=== PATIENT | female | born 1955 ===

== ENCOUNTER 2024-12-31 08:21 | Outpatient (AMB) | payer OTHER, SELFPAY ==
--- NOTE | 2024-12-31 08:23 | A.PHYSOV_ITS ---
Vital Signs 12/31/24 08:26 Height 5 ft 6 in Weight 220 lb BMI 35.5 Intake Visit Reasons: F/U after injection 11/29/2024 Intake Note: Patient is a 69 year old female in office today for a follow up visit after bilateral shoulder injections on 11/29/24. Crown Buffer Required: No Allergies aspirin Allergy (Unknown, Verified 12/31/24 08:24) Unknown ciprofloxacin Allergy (Unknown, Verified 12/31/24 08:24) Unconscious codeine Allergy (Unknown, Verified 12/31/24 08:24) Unknown hydromorphone (From Dilaudid) Allergy (Unknown, Verified 12/31/24 08:24) Unknown morphine Allergy (Unknown, Verified 12/31/24 08:24) Unknown Penicillins Allergy (Unknown, Verified 12/31/24 08:24) Unknown Sulfa (Sulfonamide Antibiotics) Allergy (Unknown, Verified 12/31/24 08:24) Unknown sulfamethoxazole (From Bactrim) Allergy (Unknown, Verified 12/31/24 08:24) Unknown Tetracyclines Allergy (Unknown, Verified 12/31/24 08:24) Unknown trimethoprim (From Bactrim) Allergy (Unknown, Verified 12/31/24 08:24) Unknown HPI Comments Details: History of Present Illness The patient is a 69-year-old individual presenting with chronic pain management. The patient has a longstanding history of lower back pain and has been diagnosed with spinal stenosis. A lumbosacral spine MRI conducted on September 23, 2023, confirmed the presence of spinal stenosis. The patient received lumbar epidural injections which provided good but short-lasting relief. The patient also reports bilateral shoulder pain, with a history of receiving a left shoulder subacromial injection on May 29, 2024, which resulted in short- lived benefit. Physical therapy was undertaken for both shoulders, but the pain remains severe, impacting daily activities such as showering. The patient underwent bilateral shoulder glenohumeral joint injections under fluoroscopic guidance on November 29, 2024. Unfortunately, once again procedure provided no benefit. The patient is diabetic and is allergic to multiple narcotic medications, limiting pain management options. The patient takes acetaminophen for pain relief and has been prescribed tramadol, which is taken after breakfast and at night. She reports minimal relief with use of tramadol 50 mg twice a day. However, she denies any side effects and no allergic reactions with use of tramadol. She continues to take acetaminophen. Pain Description - Onset: Longstanding history of lower back pain and bilateral shoulder pain - Quality: Excruciating pain, described as feeling like pulling the arm out of the socket - Location: Lower back and bilateral shoulders - Exacerbating factors: Physical activity, such as putting on deodorant - Relieving factors: Tramadol and acetaminophen, though with limited relief - Interference: Affects daily activities such as showering and applying deodorant Results - Imaging: Lumbosacral spine MRI on September 23, 2023, demonstrated spinal stenosis [facility] Medical History (Updated 12/31/24 @ 08:49 by Giovanni Lozoya DO) Lumbar radiculitis DJD of both shoulders Spinal stenosis, lumbar region with neurogenic claudication Surgical History History of tonsillectomy H/O: hysterectomy History of hernia repair History of cholecystectomy History of cancer surgery History of Social History Alcohol intake: current Alcohol intake frequency: does not drink Patient Tobacco Use Status: Never used Tobacco Current occupational status: employed Review of Systems Narrative Review of Systems - Musculoskeletal: Reports excruciating pain in lower back and bilateral shoulders - Endocrine: Reports diabetes mellitus Physical Exam Exam Exam: Physical Exam Patient appears to be in no acute distress, forward flexed posture, waddling gait. Heel walk and toe walk were not tested. Neurological examination was nonfocal. Examination of both shoulders reveals extremely limited and painful range of motion. Spurling maneuver was negative. Lhermitte's sign was negative. Patient demonstrated no upper motor neuron signs. Assessment & Plan Assessment & Plan (1) Spinal stenosis, lumbar region with neurogenic claudication: Code(s): M48.062 - Spinal stenosis, lumbar region with neurogenic claudication Category: Medical (2) DJD of both shoulders: Code(s): M19.011 - Primary osteoarthritis, right shoulder; M19.012 - Primary osteoarthritis, left shoulder Category: Medical Qualifiers: Osteoarthritis type: primary Qualified Code(s): M19.011 - Primary osteoarthritis, right shoulder; M19.012 - Primary osteoarthritis, left shoulder (3) Lumbar radiculitis: Code(s): M54.16 - Radiculopathy, lumbar region Category: Medical Plan Pain Management - Affect: Pain significantly impacts daily activities and quality of life - Analgesia: Currently using tramadol and acetaminophen, with limited relief - Adverse Effects: Allergic to multiple narcotic medications - Activities of Daily Living: Pain interferes with basic activities such as showering and applying deodorant - Aberrant Drug Related Behaviors: None reported Plan Patient was informed and verbally consented to the use of an ambient scribe for clinic note documentation during this visit. 1. Chronic Pain The patient continues to experience chronic pain affecting the lower back and bilateral shoulders. Management includes the use of tramadol and acetaminophen, with a recommendation to combine these medications for enhanced pain relief. The patient is advised to avoid high doses of ibuprofen due to potential adverse effects on kidneys and blood pressure. 2. Spinal Stenosis The patient has been diagnosed with spinal stenosis, confirmed by MRI. Previous lumbar epidural injections provided short-term relief, and further management options are being considered. 3. Diabetes Mellitus The patient's diabetes is a consideration in pain management, particularly in avoiding medications that may elevate blood sugar levels. 4. Bilateral Shoulder Pain The patient reports severe bilateral shoulder pain, with previous interventions including subacromial and glenohumeral joint injections providing limited relief. Physical therapy has been attempted, and further pain management strategies are being explored. 5. Arthritis Of The Shoulders The patient has arthritis in the shoulders, contributing to the chronic pain experienced. Cortisone injections are avoided due to potential elevation of blood sugar levels. Discussion Notes During the visit, we discussed the patient's chronic pain management, focusing on the use of tramadol and acetaminophen to alleviate symptoms. We addressed the limitations posed by the patient's allergies to narcotics and the need to avoid high doses of ibuprofen due to potential adverse effects. The patient was in formed about the potential benefits of combining tramadol with acetaminophen and was advised on the appropriate dosing regimen. It was suggested that she takes 2 tramadol tablets simultaneously bringing up to 100 mg. I will provide her with 56 tablets prescription and she will follow up with me after the holidays. She was strongly advised not to exceed a 1000 mg of acetaminophen at 1 time and may combine tramadol and acetaminophen. Patient Instructions - Take tramadol and acetaminophen as prescribed, combining them for better pain relief. - Avoid high doses of ibuprofen to prevent adverse effects on kidneys and blood pressure. - Use heating pads as needed for pain relief. - Follow up with the clinic if pain persists or worsens. Medications: New tramadol 100 mg (2 x 50 mg) PO QID PRN 56 tabs 0RF pain 7 days M19.011 - Primary osteoarthritis, right shoulder, M19.012 - Primary osteoarthritis, left shoulder, M48.062 - Spinal stenosis, lumbar region with neurogenic claudication, M54.16 - Radiculopathy, lumbar region Coding Level of Care Code Tele Est Pt Level 4 (05141) Complex visit Add On G2211 Diagnoses Spinal stenosis, lumbar region with neurogenic claudication M48.062 Primary osteoarthritis of both shoulders M19.011; M19.012 Osteoarthritis type: primary Lumbar radiculitis M54.16
[2024-12-31 08:26] VITALS: BMI 35.5
--- OUTSIDE RECORDS SUMMARY | 2024-12-31 08:37 | XMS_ITS | Encounter Summary ---
Author Organization [facility] [place] [address] Care Team Providers Care Brood Hatchery Manager Name Role Phone Marily Noel MD Primary Care Provider [phone] Encounter Details Date Type Department Care Team (Late st Contact Info) Description 12/23/2024 Telephone Adult Medicine [address] [phone] Stephanie Mejía MA Social History Tobacco Use Types Packs/Day Years Used Date Smoking Tobacco: Former Cigarettes 0.3 3.7 0 1972 - 02/07/1976 Smokeless Tobacco: Never Alcohol Use Standard Drinks/Week Comments No 0 (1 standard drink = 0.6 oz pur e alcohol) Housing Instability Answer Date Recorde d Are you worried that in the next 2 months you may not have stable housing? No 08/19/2024 Food Access & Nutrition Answer Date Rec orded Do you have access to a vari ety of food including fruits and vegetables? Yes 08/19/2024 Access to Healthcare Answer Date Record ed Within the last 3 months, ho w many times did you visit the emergency department for your medical care? 0 08/19/2024 Health Literacy Answer Date Recorded How often do you need to hav e someone help you when you read instructions, pamphlets, or other written material from your doctor or pharmacy? Never 08/19/2024 Caregiver: How often do you need to have someone help you when you read instructions, pamphlets, or other written material from your doctor or pharmacy? Not on file 08/19/2024 Financial Risk Answer Date Recorded How hard is it for you to pa y for the very basics like food, housing, medical care, and air conditioning / heating? Not very hard 08/19/2024 Transportation Answer Date Recorded Has the lack of transportati on kept you from meetings, work, or from getting things needed for daily living? No Has the lack of transportati on kept you from medical appointments or from getting medications? No 08/19/2024 Social Isolation Answer Date Recorded How often do you feel lonely or isolated from those around you? Sometimes 08/19/2024 Food Risk Answer Date Recorded Within the past 12 months we worried whether our food would run out before we got money to buy more. Never true 08/19/2024 Within the past 12 months th e food we bought just didn't last and we didn't have money to get more. Never true 08/19/2024 Dependent Care Answer Date Recorded Do you need help finding or paying for care for your loved ones. For example, child care centre manager or elderly care for an older adult? No 08/19/2024 Education Answer Date Recorded Do you think completing more education or training, like finishing a GED, going to college, or learning a trade, would be helpful for you? No 08/19/2024 Employment and Income Answer Date Recor ded During the last four weeks, have you been actively looking for work? No 08/19/2024 Living Situation Answer Date Recorded What is your living situation? Unrecognized valu e 08/19/2024 Interpersonal Safety Answer Date Record ed Physical Abuse Unrecognized value 07/02/2024 Verbal Abuse Unrecognized value 07/02/2024 Comments No Sex and Gender Information Value Date Recorded Sex Assigned at Female 04/10/2024 2:23 PM EST Legal Sex Female 11:26 AM EST Gender Identity Female 04/10/2024 2:23 PM EST Sexual Orientation Straight 08/02/2024 1: 19 PM EDT documented as of this encounter Plan of Treatment Upcoming Encounters Date Type Department Care Team (Late st Contact Info) Description 01/11/2025 12:30 PM EST Appointment Radiology Department [address] [phone] 04/23/2025 9:30 AM EDT Office Visit Adult Medicine [facility] [address] [place], [place] [phone] Belem Peng PA [address] [place], [place] documented as of this encounter Goals Goal Patient Goal Type Associated Problems Recent Progress Patient-Stated? Author PT LTG - 8 visits General No Daysi Rodriguez PT Note: Patient reports subjective decrease in neck and back pain - MET Patient is able to achieve 50 degrees of lumbar flexion - MET Patient is able to achieve 0 degrees of lumbar extension - MET Slight myofascial restriction to thoracolumbar fascia Slight myofascial restriction to bilateral upper traps, levator scap, and scalenes Patient is able to ambulate 200 ft without AD Patient is independent and compliant with HEP documented as of this encounter Visit Diagnoses Not on filedocumented in this encounter Additional Health Concerns Assessment Noted Time PHQ-9 Depression Total Score: 0 05/14/19 25 11:56 AM EDT A fall risk assessment has been complete d for the patient 08/19/2024 8:52 AM EDT documented as of this encounter Care Teams Brood Hatchery Manager Relationship Specialty Start Date End Date Marily Noel MD [address] [place] [address] PCP - General Internal Medicine 11/07/1991 documented as of this encounter
--- OUTSIDE RECORDS SUMMARY | 2024-12-31 08:37 | XMS_ITS | Clinical Summary ---
Author Organization [facility] Address [address] [place] [address] Care Team Providers Care Cupola Tapper Name Role Phone Marily Noel MD Primary Care Provider [phone] Allergies Active Allergy Reactions Criticality Noted Date Comments Aspirin 01/15/2020 Sulfamethoxazole-Trimethoprim 2021 Ciprofloxacin 01/15/2020 Codeine 10/05/2021 Hydromorphone 01/15/2020 Penicillin G 01/15/2020 Sulfacarbamide 01/15/2020 Tramadol 01/15/2020 Medications Medication Sig Dispensed Refills Start Date End Date Status pantoprazole (PROTONIX) 40 MG tablet Take 40 mg by mouth every morning on an empty stomach. 0 Active Misc Natural Products (TUMERSAID PO) Take by mouth. 0 Active vitamin C (ASCORBIC ACID) 500 MG tablet Take 500 mg by mouth daily. 0 Active fluticasone (FLONASE) 50 MCG/ACT nasal spray spray/apply 1 spray in each nostril daily. 0 Active latanoprost (XALATAN) 0.005 % ophthalmic solution 1 drop every night at bedtime. 0 Active vitamin B-1 (THIAMINE) 100 MG tablet Take 100 mg by mouth daily. 0 Active brimonidine (ALPHAGAN) 0.2 % ophthalmic solution 1 drop every 12 (twelve) hours. 0 Active timolol (TIMOPTIC) 0.25 % ophthalmic solution 1 drop 2 (two) times a day. 0 Active DICLOFENAC SODIUM EX Apply topically. 0 Active ciclopirox 0.77 % gel Apply topically 2 (two) times a day. 0 Active lidocaine (LIDODERM) 5 % Place 1 patch onto the skin daily. Remove & Discard patch within 12 hours or as directed by 0 Active Biotin (Biotin 5000) 5 MG CAPS Take by mouth. 0 Active docusate sodium (COLACE) 100 MG capsule Take 100 mg by mouth 2 (two) times a day. 0 Active senna (SENOKOT) 8.6 MG tablet Take 1 tablet by mouth daily. 0 Active Cyanocobalamin (B-12) 2500 MCG TABS Take by mouth. 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 Nutrition literature sent from the ADA, What Can I Eat? 12/26/11 A1C 6.5 LDL 124. / A1C 5.9 LDL 59. Sickle cell trait 04/06/2005 Family History Medical History Relation Name Comments Lung cancer Father Breast cancer Maternal Aunt Ovarian cancer Mother Thyroid cancer Sister Relation Name Status Comments Father Maternal Aunt Mother Sister Social History Tobacco Use Types Packs/Day Years Used Date Smoking Tobacco: Former Cigarettes 2 Smokeless Tobacco: Never Comments:Quit after college. Alcohol Use Standard Drinks/Week Comments No 0 (1 standard drink = 0.6 oz pur e alcohol) Sex and Gender Information Value Date Recorded Sex Assigned at Not on file Gender Identity Not on file Sexual Orientation Not on file Job Start Date Occupation Industry Not on file Not on file Not on file Last Filed Vital Signs Vital Sign Reading Time Taken Comments Blood Pressure 145/72 06/08/2022 9:19 AM EDT Pulse 55 06/08/2022 9:19 AM EDT Temperature 36.7 C (98 F) 06/08/2022 9:19 AM EDT Respiratory Rate - - Oxygen Saturation 99% 06/08/2022 9:19 AM EDT Inhaled Oxygen Concentration - - Weight 105.2 kg (232 lb) 06/08/2022 9:19 AM EDT Height 167.6 cm (5' 6 ) 06/08/2022 9:19 AM EDT Body Mass Index 37.45 06/08/2022 9:19 AM EDT Plan of Treatment Health Maintenance Due Date Last Done Comments Hepatitis C Screening 1955 COVID-19 Vaccine (#1) 06/01/1959 Depression Screening 1966 BMI Counseling 1972 Preventative Health Evaluation 1972 Colon Cancer Screening (Colonoscopy) 06/01/1999 Breast Cancer Screening (Mammogram) 2004 RSV Adult > 60+ Yrs or (1 - Risk 60-74 years 1-dose series) 2014 Fall Risk Assessment 06/01/2019 Osteoporosis Screening (DEXA Scan) 06/01/2019 Influenza Vaccine (#1) 2024 , 11/18/2020, 11/26/2019, Additional history exists DTap / Tdap / Td (8 - Td or Tdap) 06/16/2026 06/16/2016, 05/22/2006, 04/06/1996, Additional history exists Hepatitis B Vaccines Completed 03/23/2007, 10/20/2006, 09/20/2006 Shingrix-Zoster Vaccine Completed 10/29/2021, 08/28 Pneumococcal Vaccine Completed 03/28/2022, 10/20/2020, 07/15/2013 RSV Ped < 20 months Aged Out No longe r eligible based on patient's age to complete this topic Care Teams Cupola Tapper Relationship Specialty Start Date End Date Marily Noel MD PCP - General Internal Medicine 10/31/16
--- OUTSIDE RECORDS SUMMARY | 2024-12-31 08:37 | XMS_ITS | Data Portability ---
Author Organization [place] - [facility], Allergy Address [address] [address] Care Team Providers Care Security Operations Analyst Name Role Phone JASON DUPONT Primary Care Provider Assessment Encounter Date Assessment Date Assessment LastModified by Organization Details LastModified Time 03/11/2024 03/11/2024 68-year-old female presents today for routine hearing follow-up and audiometric testing continued to show hearing loss for which she is a candidate for amplification. She has other concerns today including dizziness, rhinitis, and hoarseness. She had negative Albia-Hallpike on exam today. We discussed possibility of migraines which could contribute dizzy symptoms as well as a head pressure. We can rule out any sinus disease with some imaging. Regarding the hoarseness, I counseled her we could assess further with flexible laryngoscopy. She is very hesitant about this. I counseled her that it was a very brief procedure. She is unsure if she could tolerate it. Will reschedule for a day she can bring a support person and she can take an Ativan prior. [email or web address] Not available 03/22/2024 07:44:32 04/16/2024 04/16/2024 CT sinus performed 03/28/24 at [facility] was reviewed with the patient. No sinus disease. I discussed with the patient that her symptoms may be related to migraine. We will send her the migraine packet to review. She will follow up at her convenience for fiberoptic laryngoscopy to address her hoarseness concerns. She is apprehensive about this exam. [email or web address] Not available 04/16/2024 16:31:11 Plan of Treatment Reminders Order Date Submit Date Provider Last Modified By Organization Details Last Modified Time Details Appointments None recorded. Lab None recorded. Referral None recorded. Procedures None recorded. Surgeries None recorded. Imaging CT, sinuses, w/o contrast 2024 025 [email or web address] [facility] [place], [address] [facility], [facility] [address], [place], [address], 09:52:43 Medication Orders Ativan 0.5 mg tablet 2024 025 [facility] #[id number], [address] [place], [address], 10:55:07 Patient TargetsNo targets recorded. Patient InstructionsNo instructions recorded. Reason for Referral None Reported. Results Created Date Observation Date Name Description Value Unit Range Abnormal Flag Note LastModifiedBy Organization Detail LastModifiedTime 03/11/19 audio gram No observ ation record ed. BARCODE Not Available 2024 13:28:11 03/29/19 25 03/28/2024 CT, sinus es, w/o contr ast No observ ation record ed. [email or web address] [facility] [address], [address], 04/16/2024 10:43:59 Result Notes None recorded. Problems Name Problem SNOMED Code Status Onset Date Resolution Date Notes Provider Name and Address Organization Details Recorded Time Sensorine ural hearing loss of bilateral ears 343605560 Active 2019 Sensorine ural hearing loss, bilateral ; Note: Date Diagnosed : 10/09/2019 12:10 PM (H90.3) Not Available [facility] 4 02:53:21 Impacted cerumen of bilateral ears 43000389911 31964 Active 2023 Impacted cerumen, bilateral ; Note: Date Diagnosed : 03/17/2023 11:25 AM (H61.23) Not Available [facility] 4 02:53:19 Chronic rhinitis 18757019 Active 2024 THOM NAVA MD [address] [place] [address], [place], [address] , [facility] - [facility] 5 10:51:47 Chronic hoarsenes s 34595500517 05 Active 2024 THOM NAVA MD [address] [facility],[place] [address], [facility] [place], [address] , [facility] - [facility] [place] 5 10:53:52 Problem Notes None recorded. Procedures Surgical History Date Name Laterality Status Provider Name and Address Organization Details Recorded Time 03/11/2024 Air & Speech Audio with Tymps - 05734, 61994 & 31521 completed SOPHIA MORA [address] [facility],[place] [address], [place], [address], [facility] 03/11/2024 10:19:04 Imaging Results None recorded. Procedure Notes None recorded. Medical Equipment None Reported. Allergies Allergen ID Allergen Name Allergen Category Reaction Reaction Severity Criticality Documentation Date Start Date Code Code System Note Provider Name and Address Organization Details Recorded Time 01966 strawberr y allergeni c extract food,medi cation hives Not available Not available 06/20/2023 81283 4 RxNorm React ion: Hives ; Not Available [facility] 4 01:04:10 34348 aspirin medicatio n other Not available Not available 06/20/2023 1191 RxNorm React ion: unkno wn, unspe cifie d;; Not Available [facility] 4 01:04:11 86654 codeine sulfate medicatio n other Not available Not available 06/20/2023 58121 RxNorm React ion: unkno wn, unspe cifie d;; Not Available [facility] 4 01:04:11 40405 Substance with sulfonami de structure and antibacte rial mechanism of action (substanc e) medicatio n Not available Not available Not available 06/20/2023 54383 8003 SNOMED React ion: Heart racin g; Not Available [facility] 4 01:04:12 74374 morphine medicatio n other Not available Not available 06/20/2023 7052 RxNorm React ion: unkno wn, unspe cifie d;; Not Available [facility] 4 01:04:13 91769 penicilli n V potassium medicatio n Not available Not available Not available 06/20/202338407 5 RxNorm React ion: Heart racin g; Not Available [facility] 4 01:04:14 12147 tramadol Not available Not available Not available Not available 06/20/2023 24307 RxNorm React ion: heart palpa tuion s; Not Available [facility] 4 01:04:15 29260 Substance with tetracycl ine structure (substanc e) medicatio n Not available Not available Not available 06/20/2023 53477 8001 SNOMED React ion: Heart racin g; Not Available [facility] 4 01:04:17 Medications Name Sig Start Date Stop Date Status Note LastModified by Organization Details LastModified Time cyclobenz aprine 10 mg tablet TAKE 1 TABLET BY MOUTH 3 TIMES A DAY NEEDED SPASMS active Not Available Not Available No t Available latanopro st 0.005 % eye drops INSTILL 1 DROP INTO BOTH EYES EVERY EVENING DIRECTED active Not Available Not Available No t Available hydrocort isone valerate 0.2 % topical cream 2019 active Medicati on ID: [id number] D uration Value: 14 Brand Name: hydrocor tisone valerate Send Method: E-Prescr ibed Sub s Allowed: subs OK Medic ationGen ericName : hydrocor tisone valerate Not Available Not Available Not Available FreeStyle Lancets 28 gauge USE 1 LANCET TO TEST BLOOD BEFORE BREAKFAS T active Not Available Not Available No t Available pantopraz ole 20 mg tablet,de layed release TAKE 1 TABLET (20 MG TOTAL) BY MOUTH 1 (ONE) TIME EACH DAY BEFORE BREAKFAS T. 03/11 completed Not Available Not Available Not Available famotidin e 20 mg tablet 03/11 completed Medicati on ID: [id number] D uration Value: 30 Brand Name: famotidi ne Send Method: E-Prescr ibed Sub s Allowed: subs OK Medic ationGen ericName : famotidi ne Not Available Not Available Not Available lorazepam 0.5 mg tablet Take 1 tablet every day by oral route. active Not Available Not Available No t Available lidocaine 5 % topical patch 2019 active Medicati on ID: [id number] D uration Value: 90 Brand Name: lidocain e Send Method: E-Prescr ibed Sub s Allowed: subs OK Medic ationGen ericName : lidocain e Not Available Not Available Not Available brimonidi ne 0.2 % eye drops INSTILL 1 DROP INTO RIGHT EYE TWICE A DAY DIRECTED active Not Available Not Available No t Available methylpre dnisolone 4 mg tablets in a dose pack TAKE 6 TABLETS ON DAY 1 DIRECTED ON PACKAGE AND DECREASE BY 1 TAB EACH DAY FOR A TOTAL OF 6 DAYS 03/11 completed Not Available Not Available Not Available timolol maleate 0.5 % eye drops INSTILL 1 DROP IN RIGHT EYE TWICE A DAY active Not Available Not Available No t Available fluticaso ne propionat e 50 mcg/actua tion nasal spray,jesse pension USE 2 SPRAYS IN EACH NOSTRIL TWICE A DAY active Not Available Not Available No t Available dicyclomi ne 10 mg capsule 2018 active Medicati on ID: [id number] D uration Value: 30 Brand Name: dicyclom ine Send Method: E-Prescr ibed Sub s Allowed: subs OK Speci al Instruct ion: TAKE 1 CAPSULE BY MOUTH 4 TIMES DAILY BEFORE MEALS AND AT BEDTIME Medicati onGeneri cName: dicyclom ine Not Available Not Available Not Available Tylenol Extra Strength 500 mg tablet active Medicati on ID: [id number] B rand Name: Tylenol Extra Strength Send Method: E-Prescr ibed Sub s Allowed: subs OK Medic ationGen ericName : Tylenol Extra Strength Not Available Not Available Not Available ciclopiro x 0.77 % topical gel APPLY 1 APPLICAT ION EXTERNAL LY EVERY DAY FOR 90 DAYS active Not Available Not Available No t Available duloxetin e 60 mg capsule,d elayed release TAKE 1 CAPSULE BY MOUTH EVERY DAY 03/11 completed Not Available Not Available Not Available tizanidin e 2 mg capsule TAKE 1 CAPSULE BY MOUTH 3 TIMES A DAY NEEDED FOR MUSCLE SPASM active Not Available Not Available No t Available Travatan Z 0.004 % eye drops 2018 active Medicati on ID: [id number] D uration Value: 30 Brand Name: Travatan Z Send Method: E-Prescr ibed Sub s Allowed: subs OK Speci al Instruct ion: INSTILL 1 DROP EVERY DAY AT BEDTIME NEEDED INTO EACH EYE Medi cationGe nericNam e: Allan Santana Not Available Not Available Not Available diclofena c 1 % topical gel APPLY 1 APPLICAT ION TWO TIMES A DAY. active Not Available Not Available No t Available B Complex 100 0.4 mg tablet active Medicati on ID: [id number] B rand Name: B Complex 100 Send Method: E-Prescr ibed Sub s Allowed: subs OK Medic ationGen ericName : B Complex 100 Not Available Not Available Not Available Vitals Date Recorded Body height Body mass index (BMI) Body weight Provider Name and Address Organization Details Last Updated DateTime 03/11/2024 168.91 cm 35 kg/m2 12953.32 g Senia Pittman [facility] 03/11/2024 10:30:04 Social History None recorded. Functional Status None recorded. Mental Status None recorded. Family History Nothing Reported. Medical History No medical history recorded. Gynecological HistoryNo gynecological history recorded. Obstetrics History GPAL:G 0 P 0 0 0 0 Past Encounters Encounter ID Performer Location Encounter Start Date Encounter Closed Date Diagnosis/Indication Diagnosis SNOMED-CT Code Diagnosis ICD10 Code Diagnosis IMO Codes Diagnosis Note [id number] THOM NAVA MD [facility] [address] [address] 03/11/2024 09:54:21 03/11/2024 11:00:17 Sensorineural hearing loss of bilateral ears 267167335 H90.3 Audiologic al evaluation results: Normal sloping to severe sensorineu ral hearing loss with excellent word recognitio n, bilaterall y. Tympanomet ry: Right Ear:Type A Left Ear:Type A Chronic rhinitis 2376527 6 J31.0 Chronic hoarseness 48846 81496 105 R49.0 [id number] ELMA PENNY PA-C [facility] [address] [address] 04/16/2024 16:23:38 04/16/2024 16:33:24 Chronic rhinitis 69726751 J31.0 Health Concerns Section Related Observation LastModified by Organization Detai ls LastModified Time None Recorded Concern Status LastModified by Organization Details LastModified Time None Recorded Advance Directives Directive None Recorded Payers Insurance Date Sequence Insurance Name Policy Number Policy Haider Covered Member ID Haider Member ID Guarantor Name 04/17/2024 1 [facility] [id number] 01 Rosamaria Khan [id number] Rosamaria Khan Notes Date Note Type Note Provider Name and Address Organization Details Recorded Time 03/11/2024 text/html 68 yo F presents for follow up of hearing. She feels some spinning since last visit, comes and goes, head feels pressure some allergies, prednisone helped, no migraines, clenches teeth no mouth guard, needs PSG. 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 Patient evaluated by Dr. Nava 03/11/24 and reported some spinning sensation that comes and goes and head pressure. CT sinus obtained to rule out sinus disease. CHARLIE PETERSEN MD [address] [place] [address],[address], [address], [place] - [facility] 04/17/2024 10:27:09 OBGyn Episode No OBEpisode recorded.
--- OUTSIDE RECORDS SUMMARY | 2024-12-31 08:37 | XMS_ITS | Clinical Summary ---
Author Organization [facility] [address] [facility] Address [address] [place] [phone] Phone Care Team Providers Care Jointer Machine Name Role Phone Marily Noel MD Primary Care Provider [phone] Allergies Active Allergy Reactions Criticality Noted Date Comments Aspirin Hives High 04/06/2005 Ciprofloxacin Nausea And Vomiting Medium 03/20/2009 Codeine Anaphylaxis High 04/06/2005 Hydromorphone Anaphylaxis High 12/27/2005 Morphine Anaphylaxis High 04/06/2005 Penicillin G Palpitations High 04/06/2005 heart racing, swelling Hardin Hives High 09/22/2005 Sulfacetamide Sodium Hives High 04/06/2005 heart racing, swelling Sulfamethoxazole-Trime thoprim Hives High 10/05/2021 Tetracycline Anaphylaxis High 04/06/2005 heart racing, swelling Tramadol Anaphylaxis High 07/15/2013 Vomiting, palpitations Medications latanoprost (XALATAN) 0.005 % ophthalmic solution INSTILL 1 DROP INTO BOTH EYES EVERY EVENING INSTILL 1 DROP IN BOTH EYES EVERY EVENING DIRECTED 4 Active FreeStyle Lancets 28 gauge lancets USE 1 LANCET TO TEST BLOOD BEFORE BREAKFAST 100 each 1 5 Active cholecalciferol (VITAMIN D-3) 50 mcg (2,000 unit) capsule Take 1 capsule (2,000 Units total) by mouth 1 (one) time each day. 5 Active biotin 5,000 mcg tablet, sublingual Place 1 tablet under the tongue 1 (one) time each day. 5 Active calcium carbonate 1,500 mg (600 mg elemental calcium) tablet 600mg PO BID 5 Active semaglutide (Ozempic) 0.25 mg or 0.5 mg (2 mg/3 mL) injection penIndications: Controlled type 2 diabetes mellitus with stage 3 chronic kidney disease, without long-term current use of insulin [place] [place] [facility] [place] Inject 0.5 mg under the skin every 7 (seven) days. 3 mL 1 5 Active Active Problems Problem Noted Date Diagnosed Date Hyperlipidemia LDL goal <70 08/25/2024 Cystocele, midline 02/03/2022 Overview (03/22/2024): Mucoepidermoid carcinoma ([facility] V24, [facility] V 28) 09/20/2021 Overview (11/28/2023): Oral cavity, right cheek, low grade mucoepidermoid carcinoma Obstructive sleep apnea 07/09/2018 Overview (11/28/2023): NOT TREATED (04/03/23 & Oct 2020) [facility] Home Sleep Apnea Test: Date 07/04/2018; Wt 240#; BMI 38; EDEL 78, AI 64; HI 14; Unclassified apneas 0; Obstructive apneas 271; Central apneas 20; Mixed apneas 4; hypopneas 64; average oxygen saturation 90% (lowest 64% with saturations <88% for 5% or more of study) [facility] Sleep Center Polysomnogram treatment study. Date 08/17/2018. Wt 240#; BMI 38; SE 69 % SM 85 %; spent 19 % of the study in REM. On CPAP @ 10; RDI 1.8 (AHI 0.9), Central apneas 2; Obstructive apneas 1; Mixed apneas 0; hypopneas 0; RERAs 3; and, average oxygen saturation was 97%. For the entire study, PLMs ~0. - Obstructive Sleep Apnea - severe; mostly obstructive apneas; with sleep related hypoventilation by 2018 home polysomnogram. Pain of left hip joint 04/24/2018 Glaucoma suspect 12/18/2017 Severe obesity (BMI 35.0-39. 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 SBO (small bowel obstruction) ([facility] [place], [facility] V28) 03/31/2014 Overview (11/28/2023): high grade SBO, laparotomy, adhesions with necrotic vaginal cuff Lumbar spinal stenosis 01/26/2012 Overview (11/28/2023): multilevel Chronic kidney disease, stag e III (moderate) ([facility] V24, [facility] V28) 08/19/2009 Spinal cord tumor 10/07/2008 Overview (03/22/2024): Benign, RT 10/15 Controlled type 2 diabetes m ellitus with renal manifestation [place] [place] [facility] V28) 05/24/2005 Overview (03/22/2024): Primary localized osteoarthrosis, lower leg 05/07 Constipation 04/06/2005 Overview (03/22/2024): Esophageal reflux 04/06/2005 Hematuria 04/06/2005 Overview (03/22/2024): previous urology evaluation negative Irritable bowel syndrome 04/06/2005 Onychomycosis 04/06/2005 Positive PPD 04/06/2005 Sickle cell trait ([facility] V24) 04/06/2005 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 Overview (03/22/2024): 8/16, BRCA negative Resolved Problems Problem Noted Date Diagnosed Date Resolved Date 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 03/22/2024 Overview (11/28/2023): 8/16, right 07/04/2012 Negative BRCA analysis Encounters Date Type Department Care Team Description 12/25/2024 9:15 AM EST Office Visit General Surgery [address] [phone] Fran Jain, DO Mass of right lower extremity (Primary Dx) 12/23/2024 9:40 AM EST Lab Draw [address] Controlled type 2 diabetes mellitus with renal manifestation ([facility] V24, [facility] V28) 12/23/2024 8:45 AM EST Office Visit Adult [address] [phone] Marily Noel MD Controlled type 2 diabetes mellitus with renal manifestation ([facility] V24, [facility] V28) (Primary Dx); Stage 3 chronic kidney disease, unspecified whether stage 3a or 3b CKD ([facility] V24, [facility] V28); Hyperlipidemia LDL goal <70; Spinal stenosis of lumbar region, unspecified whether neurogenic claudication present 12/23/2024 Results Follow-Up Adult [address] [phone] Marily Noel MD 12/23/[address] [phone] Stephanie Mejía MA 12/03/2024 5:30 PM EDT Treatment [address] [phone] Daysi Rodriguez, PT Cervicalgia (Primary Dx); Radiculopathy, cervical region; Radiculopathy, lumbar region; Spinal stenosis, lumbar region with neurogenic claudication 11/12/2024 5:30 PM EDT Treatment [address] [phone] Daysi Rodriguez, PT Cervicalgia (Primary Dx); Radiculopathy, cervical region; Radiculopathy, lumbar region; Spinal stenosis, lumbar region with neurogenic claudication 11/06/2024 5:30 PM EDT Treatment [address] [place] [phone] Moskal, Daysi, PT Cervicalgia (Primary Dx); Radiculopathy, cervical region; Radiculopathy, lumbar region; Spinal stenosis, lumbar region with neurogenic claudication 10/30/2024 5:30 PM EDT Treatment [address] [phone] Moskal, Daysi, PT Cervicalgia (Primary Dx); Radiculopathy, cervical region; Radiculopathy, lumbar region; Spinal stenosis, lumbar region with neurogenic claudication 10/29/2024 5:30 PM EDT Treatment [address] [phone] Moskal, Daysi, PT Cervicalgia (Primary Dx); Radiculopathy, cervical region; Radiculopathy, lumbar region; Spinal stenosis, lumbar region with neurogenic claudication 10/23/2024 5:30 PM EDT Treatment [address] [phone] Moskal, Daysi, PT Cervicalgia (Primary Dx); Radiculopathy, cervical region; Radiculopathy, lumbar region; Spinal stenosis, lumbar region with neurogenic claudication 10/22/2024 5:30 PM EDT Treatment [address] [phone] Moskal, Daysi, PT Cervicalgia (Primary Dx); Radiculopathy, cervical region; Radiculopathy, lumbar region; Spinal stenosis, lumbar region with neurogenic claudication 10/16/2024 5:30 PM EDT Treatment [address] [phone] Moskal, Daysi, PT Cervicalgia (Primary Dx); Radiculopathy, cervical region; Radiculopathy, lumbar region; Spinal stenosis, lumbar region with neurogenic claudication 10/15/2024 5:30 PM EDT Treatment [address] [place] [phone] Daysi Rodriguez, SAFIA Cervicalgia (Primary Dx); Radiculopathy, cervical region; Radiculopathy, lumbar region; Spinal stenosis, lumbar region with neurogenic claudication 09/30/2024 3:32 PM EDT - 09/30/2024 11:59 PM EDT Hospital Encounter [facility] Ultrasound [address] [place] [phone] Mass of right lower extremity Discharge Disposition: Home or Self Care from Last 3 Months Immunizations Immunization Administration Dates Next Due DTP 10/06/1959, 8,12/17/1955,12/28,1954 Hepatitis B (Gthbenq-N-Adurw , Recombivax HB-Adult) 19yo and older 03/23/2007,10/20/2006,09/20/2006 Influenza Quadravalent, MDCK , 0.5ml, with preservative (Flucelvax) 6mo and older 12/10/2017,10/19/2016 Influenza Quadrivalent, 0.5m l, preservative free (Fluarix; FluLaval; Fluzone) ages 6mo and older (Afluria) 3yo and older 12/29/2018 Influenza trivalent, 0.5mL ( Fluad) 65yo and older 12/23/2024 Influenza trivalent, 0.5mL ( Fluzone High-dose) 65yo and older 11/29/2023,11/28/2022,11/23/2021,11/18,11/26/2019 Influenza trivalent, with pr eservative (Fluzone; Afluria) 6mo and older 01/27/2016,01/05/2015,01/13/2014,03/14 Measles 05/23/2005, 0,11/19/1957,08/30 Moderna (age 6mo & older) Bi valent, COVID-19, 0.5 mL or 0.25 mL dosage 11/27/2021 Moderna SARS-CoV-2 COVID-19, mRNA, LNP-S, preservative free 05/29/2020,05/01/2020 Mumps 05/23/2005, 0,11/19/1957,08/30 OPV 10/06/1959, 8,08/30/1956,05/31 Pneumococcal conjugate 13 va lent (Prevnar 13, PCV13) 2mo and older 10/20/2020 Pneumococcal polysaccharide 23 valent (Pneumovax 23) 2yo and older 03/28/2022,07/15/2013 RSV, bivalent, protein subun it RSVpreF, 0.5mL, Preservative Free (ABRYSVO) 50yo and older or 32 through 36 wks of 11/21/2023 RSV, bivalent, protein subun it RSVpreF, 0.5mL, Preservative Free (Arexvy) 50yo and older 11/21/2023 Respiratory syncytial virus (RSV), unspecified 11/21/2023 Rubella 05/23/2005 Smallpox 11/19/1957 Td Tetanus diptheria (Tdvax) 7yo and older 06/16/2016,04/06/1996 Tdap Tetanus diptheria acell ular pertussis (Boostrix; Adacel) 7yo and older 05/22/2006 Zoster Live 08/18/2014 Zoster recombinant (Shingrix ) 19yo and older 10/29/2021,08/28/2021 Surgical History Surgery Date Site/Laterality Comments HYSTERECTOMY : for fibroids, ovaries present CHOLECYSTECTOMY TUBAL LIGATION FLEXIBLE SIGMOIDOSCOPY 04/2000 TONSILLECTOMY COLONOSCOPY 09/2003 tics and hemorrhoids; repeat in ten yrs COLONOSCOPY 08/2013 hyperplastic polyp; repeat 10 years BREAST BIOPSY Right cancer COLONOSCOPY 04/14/2020 : two tubular adenomas and internal hemorrhoids. random biopsy revealed mild colitis and melanosis colii UPPER GASTROINTESTINAL ENDOSCOPY 04/14/2020 biopsy pending BOWEL RESECTION SCREENING MAMMOGRAM 11/04/2023 Bilateral Medical History Medical History Date Comments Esophageal reflux 04/06/2005 Irritable bowel syndrome 04/06/2005 Sickle-cell trait ([facility] V24) 04/06/2005 Hematuria 04/06/2005 Lumbar spinal stenosis 01/26/2012 DJD (degenerative joint dise ase) of knee 07/15/2013 Morbid obesity with BMI of 4 0.0-44.9, adult (CMS/HCC V24, CMS/HCC V28) 10/19/2016 Glaucoma suspect 12/18/2017 History of colon polyps 04/14/2020 COVID-19 virus infection 02/26/2021 : 1.20. 22 Mucoepidermoid carcinoma ([facility]/HCC V24, [facility]/HCC V28) 09/20/2021 Oral cavity, right cheek, lo w grade mucoepidermoid carcinoma Hemorrhoids History of small bowel obstruction Low back pain Spinal cord tumor 10/07/2008 RT 10/15 Obstructive sleep apnea 07/09/2018 NOT JAKUB BAILON (04/03/23 & Oct 2020) [facility] Home Sleep Apnea Test: Date 07/04/2018; Wt 240#; BMI 38; EDEL 78, AI 64; HI 14; Unclassified apneas 0; Obstructive apneas 271; Central apneas 20; Mixed apneas 4; hypopneas 64; average oxygen saturation 90% (lowest 64% with saturations <88% for 5% or more of study) [facility] Sleep Center Polysomnogram treatment study. Date 08/17/2018. Wt 240#; BMI 38; SE 69 Positive PPD 04/06/2005 Onychomycosis 04/06/2005 History of ductal carcinoma in situ (DCIS) of breast 09/21, BRCA negative H/O oral cancer late 50s Family History Medical History Relation Name Comments Breast cancer Aunt mat maternal Lung cancer Father Breast cancer Maternal Grandmother Diabetes Mother ovarian ca ncer, hypertension. Ovarian cancer Mother Lung cancer Other 1 niece at 31; di ed 41 with brain aneurysm Lymphoma Other 1 3 nieces and ne phews and their children Thyroid cancer Other 2 Niece Thyroid cancer Other 3 Nephew Arthritis Sister 1 COPD, CHF Other: covid Sister 2 Colon cancer Neg Hx Relation Name Status Comments Aunt mat Father Maternal Grandmother Mother Other 1 Other 2 Niece Other 3 Nephew Alive Sister 1 Sister 2 Alive Social History Tobacco Use Types Packs/Day Years Used Date Smoking Tobacco: Former Cigarettes 0.3 3.7 0 1972 - 02/07/1976 Smokeless Tobacco: Never Tobacco Cessation:Counseling Given: Not Answered Alcohol Use Standard Drinks/Week Comments No 0 [...] your loved ones. For example, child care center administrator or elderly care for an older adult? [...] Orientation Straight 08/02/2024 1: 19 PM EDT Obstetrics History Para Term AB IAB SAB Ectopic Multiple Livin g Live Births 3 3 3 2 3 Date Outcome GA Total Labor Labor/2nd/3rd Weight Sex Type Anes PTL Niecy A1 A5 Name Clin Term Vag-S pont Living Term CS-Un spec Living Term CS-Un spec Demise Last Filed Vital Signs Vital Sign Reading Time Taken Comments Blood Pressure 117/64 12/25/2024 9:22 AM EST Pulse 65 12/25/2024 9:22 AM EST Temperature 36.2 C (97.1 F) 12/25/2024 9:22 AM EST Respiratory Rate 16 12/23/2024 8:56 AM EST Oxygen Saturation 99% 12/23/2024 8:56 AM EST Inhaled Oxygen Concentration - - Weight 100 kg (221 lb) 12/25/2024 9:22 AM EST Height 168.9 cm (5' 6.5 ) 12/25/2024 9:22 AM EST Body Mass Index 35.14 12/25/2024 9:22 AM EST Plan of Treatment Upcoming Encounters Date Type Department Care Team (Late st Contact Info) Description 01/11/2025 12:30 PM EST Appointment Radiology Department - [address] [phone] 04/23/2025 9:30 AM EDT Office Visit Adult Medicine [address] [phone] Belem Peng PA [address] [place] [address] Health Maintenance Due Date Last Done Comments COVID-19 Vaccine ( season) 2024 11/27/2021, 12/11/2020, 05/29/2020, Additional history exists Diabetes: Annual Retina Eye Exam 04/02/2025 04/02/2024, 07/04/2023 Diabetes: Blood Sugar Control Test (HGBA1C) 06/22/2025 12/23/2024, 08/19/2024, 12/19/2023, Additional history exists Diabetes: Annual Foot Exam 06/28/2025 06/28/2024, Diabetes: Annual Urine Albumin-Creatinine Ratio (uACR) 08/19/2025 08/19/2024, 12/21/2023, 04/17/2023 Diabetes: Annual GFR (Glomerular Filtration Rate) 08/19/2025 08/19/2024, 12/19/2023, 08/24/2023, Additional history exists Falls Risk Assessment 08/19/2025 08/19/2024 , 08/19/2024, 03/25/2024 Social Influencers of Health Screening 08/19/2025 08/19/2024 Breast Cancer Screening 11/03/2025 11/04/19 24, 11/04/2023, 10/08/2022, Additional history exists DTaP,Tdap,and Td Vaccines (9 - Td or Tdap) 06/16/2026 06/16/2016, 05/22/2006, 04/06/1996, Additional history exists Colorectal Cancer Screening: Colonoscopy 02/28/2028 02/27/2023 Cholesterol Screening (Lipid Panel) 08/19/2029 08/19/2024, 12/19/2023, 11/28/2022 Osteoporosis Screening (Bone Density Screening) 01/08/2036 01/07/2021 IPV Vaccines Completed 10/06/1959, 07/08, 08/30/1956, Additional history exists Hepatitis B Vaccines Completed 03/23/2007, 10/20/2006, 09/20/2006 Hepatitis C Screening Completed 08/06/2012 Zoster Vaccines Completed 10/29/2021, 08/07, 08/18/2014 Pneumococcal Vaccine: 50+ Years Completed 03/28/2022, 10/20/2020, 07/15/2013 RSV Immunization Adult Patients Completed 11/21/2023, 11/21/2023, 11/21/2023 RSV Immunization Patients Under 20 months Aged Out 11/21/2023 No longer eligible based on patient's age to complete this topic Depression Screening Completed 05/13/2024 Influenza Vaccine Completed 12/23/2024, , 11/28/2022, Additional history exists HIB Vaccines Aged Out No longer eligi ble based on patient's age to complete this topic HPV Vaccines Aged Out No longer eligi ble based on patient's age to complete this topic Hepatitis A Vaccines Aged Out No long er eligible based on patient's age to complete this topic MMR Vaccines Aged Out No longer eligi ble based on patient's age to complete this topic Meningococcal ACWY Vaccine Aged Out N o longer eligible based on patient's age to complete this topic Meningococcal B Vaccine Aged Out No l onger eligible based on patient's age to complete this topic Varicella Vaccines Aged Out No longer eligible based on patient's age to complete this topic Goals Goal Patient Goal Type Associated Problems [...] Patient is independent and compliant with HEP Procedures Procedure Name Priority Date/Time Associated Diagnosis Comments HEMOGLOBIN A1C Routine 12/23/2024 9:42 AM EST Controlled type 2 diabetes mellitus with renal manifestation ([facility] V24, [facility] V28) US EXTREMITY NONVASCULAR LIMITED RIGHT Routine 09/30/2024 3:54 PM EDT Mass of right lower extremity MICROALBUMIN CREATININE URINE RATIO Routine 08/19/2024 9:42 AM EDT Stage 3a chronic kidney disease (CMS/HCC V24, [facility] V28) Controlled type 2 diabetes mellitus with stage 3 chronic kidney disease, without long-term current use of insulin ([facility] V24, [facility] V28) Severe obesity (BMI 35.0-39.9) with comorbidity (CMS/HCC V24, [facility] V28) Obstructive sleep apnea Gastroesophageal reflux disease, unspecified whether esophagitis present COMPREHENSIVE METABOLIC PANEL Routine 08/19/2024 9:42 AM EDT Stage 3a chronic kidney disease ([facility] V24, [facility] V28) Controlled type 2 diabetes mellitus with stage 3 chronic kidney disease, without long-term current use of insulin ([facility] V24, [facility] V28) Severe obesity (BMI 35.0-39.9) with comorbidity ([facility] V24, [facility] V28) Obstructive sleep apnea Gastroesophageal reflux disease, unspecified whether esophagitis present LIPID PANEL WITH REFLEX TO DIRECT LDL Routine 08/19/2024 9:42 AM EDT Stage 3a chronic kidney disease ([facility] V24, [facility] V28) Controlled type 2 diabetes mellitus with stage 3 chronic kidney disease, without long-term current use of insulin [place] [place] [facility] V28) Severe obesity (BMI 35.0-39.9) with comorbidity ([facility] V24, [facility] V28) Obstructive sleep apnea Gastroesophageal reflux disease, unspecified whether esophagitis present EXTERNAL DIABETIC RETINA EYE EXAM 04/02/2024 SCREENING MAMMOGRAPHY BI 2-VIEW BREAST INC CAD Routine 11/04/2023 1:00 PM EDT Encounter for screening mammogram for malignant neoplasm of breast DIABETES FOOT EXAM Routine 03/23/2023 COLONOSCOPY Routine 02/27/2023 DXA BONE DENSITY STUDY 1+ SITS AXIAL SKEL Routine 01/07/2021 9:38 AM EST Asymptomatic menopausal state HEPATITIS C SCREENING Routine 08/06/2012 from Last 3 Months or Most Recently Relevant to Health Maintenance Results * Hemoglobin A1c (12/23/2024 9:42 AM EST) Hemoglobin A1C 5.9 <6.5 % LAB CHEMISTRY METHOD 12/23/2024 2:14 PM EST [facility] Mean Bld Glu Estim. 123 mg/dL LAB CHEMISTRY METHOD 12/23/2024 2:14 PM EST [facility] Blood Venous blood specimen / Unknown Venipuncture / Unknown 12/23/2024 9:42 AM EST 12/23/2024 9:42 AM EST us Marily Noel MD LAB BLOOD ORDERABLES Final Resul t [facility] [address] [place] [address], [place] [phone] * US Extremity Nonvascular Limited Right (09/30/2024 3:54 PM EDT) Anatomical Region Laterality Modality Extremity Right Ultrasound 10/06/2024 11:3 6 AM EDT Impressions 10/06/2024 11:38 AM EDT There is a nonspecific hypoechoic area of altered echotexture in the superficial tissues correlating to an area of palpable concern. This has no specific imaging features. This does not have the typical appearance of a lipoma. The patient should be managed on the basis of the physical exam and history. -------- FINAL REPORT -------- Dictated By: Delon Antonio Dictated Date: 10/06/2024 11:36 ET Assigned Physician: Delon Antonio Reviewed and Electronically Signed By: Delon Antonio Signed Date: 10/06/2024 11:38 ET Workstation ID: [id number] Transcribed By: Self Edit Transcribed Date: 10/06/2024 11:36 ET Narrative 10/06/2024 11:38 AM EDT EXAMINATION: US. RIGHT LOWER EXTREMITY CLINICAL INFORMATION: Nonpainful palpable abnormality right lower lateral leg. Technologist indicates present for years. COMPARISON: None. TECHNIQUE: High-frequency linear transducer examination with attention to the area of clinical concern High-frequency linear transducer examination targeting an area of palpable concern in the lower lateral right leg FINDINGS: QUALITY: Adequate In the area of palpable concern there is a slightly ill-defined hypoechoic oval area of altered echotexture immediately beneath the skin. The interface with the underlying tissues appears well-defined. There is at least some color signal within or adjacent to the abnormality. There are no suspicious posterior features. No convincing involvement of the deep musculature. 09/30/24-0.8 x 0.5 x 0.4 cm. Procedure Note Delon Antonio MD - 10/06/2024 EXAMINATION: US. RIGHT LOWER EXTREMITY CLINICAL INFORMATION: Nonpainful palpable abnormality right lower lateral leg. Technologistindicates present for years. COMPARISON: None. TECHNIQUE: High-frequency linear transducer examination with attention to the area ofclinical concern High-frequency linear transducer examination targeting an area of palpableconcern in the lower lateral right leg FINDINGS: QUALITY: Adequate In the area of palpable concern there is a slightly ill-defined hypoechoicoval area of altered echotexture immediately beneath the skin. Theinterface with the underlying tissues appears well-defined. There is atleast some color signal within or adjacent to the abnormality. There areno suspicious posterior features. No convincing involvement of the deepmusculature. 09/30/24-0.8 x 0.5 x 0.4 cm. IMPRESSION: There is a nonspecific hypoechoic area of altered echotexture in thesuperficial tissues correlating to an area of palpable concern. This has no specific imaging features. This does not have the typicalappearance of a lipoma. The patient should be managed on the basis of the physical exam andhistory. -------- FINAL REPORT -------- Dictated By: Delon Antonio Dictated Date: 10/06/2024 11:36 ET Assigned Physician: Delon Antonio Reviewed and Electronically Signed By: Delon Antonio Signed Date: 10/06/2024 11:38 ET Workstation ID: [id number] Transcribed By: Self Edit Transcribed Date: 10/06/2024 11:36 ET us Fran Jain DO IMG US PROCEDURES Final Result * (ABNORMAL) Lipid panel with reflex to direct LDL (08/19/2024 9:42 AM EDT) Cholesterol 172 0 - 200 mg/dL LAB CHEMISTRY METHOD 08/19/2024 7:00 PM EDT [facility] Triglycerides 221(H) 0 - 150 mg/dL LAB CHEMISTRY METHOD 08/19/2024 7:00 PM EDT [facility] HDL 52 >=40 mg/dL LAB CHEMISTRY METHOD 08/19/2024 7:00 PM EDT [facility] LDL Calculated 76 0 - 100 mg/dL LAB CHEMISTRY METHOD 08/19/2024 7:00 PM EDT [facility] VLDL Cholesterol Brennen 44.2 mg/dL LAB CHE[facility]STRY [facility] HDL Chol. (LDL+VLDL) 120 <145 mg/dL LAB CHEMISTRY METHOD 08/19/2024 7:00 PM EDT [facility] Chol/HDL Ratio 3.3 0.0 - 4.4 LAB CHEMISTRY METHOD 08/19/2024 7:00 PM EDT [facility] Blood Venous blood specimen / Unknown Venipuncture / Unknown 08/19/2024 9:42 AM EDT 08/19/2024 9:42 AM EDT us Belem FLOWER LAB BLOOD ORDERABLES Final Re sult [facility] [address] [place] [address], * Microalbumin creatinine urine ratio (08/19/2024 9:42 AM EDT) Creatinine, Urine 96.0 mg/dL LAB CHEMISTRY METHOD 08/19/2024 10:07 PM EDT [facility] Microalb, Ur 7.3 0.0 - 29.0 mg/L LAB CHEMISTRY METHOD 08/19/2024 10:07 PM T [facility] Microalb/Creat Ratio 8 <30 mg/g creat LAB CHEMISTRY METHOD 08/19/2024 10:07 PM [facility] LAB Urine Urine specimen from urethra / Unknown Non-blood Collection / Unknown 08/19/2024 9:42 AM EDT 08/19/2024 9:42 AM EDT us [facility] URINE ORDERABLES Final Re sult [facility] [address] [place] [address], * (ABNORMAL) Comprehensive metabolic panel (08/19/2024 9:42 AM EDT) Sodium 144 133 - 145 mmol/L LAB CHEMISTRY METHOD 08/19/2024 7:00 PM [facility] Potassium 4.2 3.5 - 5.5 mmol/L LAB CHEMISTRY METHOD 08/19/2024 7:00 PM [facility] Chloride 107 96 - 110 mmol/L LAB CHEMISTRY METHOD 08/19/2024 7:00 PM [facility] CO2 30 21 - 32 mmol/L LAB CHEMISTRY METHOD 08/19/2024 7:00 PM [facility] Anion Gap 7 3 - 11 LAB CHEMISTRY METHOD 08/19/2024 7:00 PM [facility] Glucose 82 70 - 100 mg/dL LAB CHEMISTRY METHOD 08/19/2024 7:00 PM [facility] BUN 13 5 - 25 mg/dL LAB CHEMISTRY METHOD 08/19/2024 7:00 PM [facility] Creatinine 1.05 0.50 - 1.10 mg/dL LAB CHEMISTRY METHOD 08/19/2024 7:00 PM [facility] eGFR 57(L) >=60 mL/min/1. 73m2 LAB CHEMISTRY METHOD 08/19/2024 7:00 PM [facility] Comment:Calculation based on the Chronic Kidney Disease Epidemiology Collaboration (CKD-EPI) equation refit without adjustment for race. BUN/Creatinine Ratio 12.4 LAB CHEMISTRY METHOD 08/19/2024 7:00 PM [facility] Calcium 9.8 8.5 - 10.5 mg/dL LAB CHEMISTRY METHOD 08/19/2024 7:00 PM [facility] AST (SGOT) 19 10 - 42 unit/L LAB CHEMISTRY METHOD 08/19/2024 7:00 PM [facility] ALT (SGPT) 20 10 - 60 unit/L LAB CHEMISTRY METHOD 08/19/2024 7:00 PM [facility] Alkaline Phosphatase 67 42 - 121 unit/L LAB CHEMISTRY METHOD 08/19/2024 7:00 PM [facility] Total Protein 7.0 6.0 - 8.0 g/dL LAB CHEMISTRY METHOD 08/19/2024 7:00 PM [facility] Albumin 3.9 3.2 - 5.0 g/dL LAB CHEMISTRY METHOD 08/19/2024 7:00 PM [facility] Total Bilirubin 0.5 0.0 - 1.4 mg/dL LAB CHEMISTRY METHOD 08/19/2024 7:00 PM [facility] Blood Venous blood specimen / Unknown Venipuncture / Unknown 08/19/2024 9:42 AM EDT 08/19/2024 9:42 AM EDT us [facility] BLOOD ORDERABLES Final Re sult [facility] [address] [place] [address], [place] [phone] * External Diabetic Retina Eye Exam Report (04/02/2024) Anatomical Region Laterality Modality Ultrasound us Provider [facility] US PROCEDURES Final Result * SCREENING MAMMOGRAPHY BI 2-VIEW BREAST INC CAD (11/04/2023 1:00 PM EDT) Anatomical Region Laterality Modality Radiographic Viviana ging 10/08/2022 10:0 2 AM EDT Narrative 11/04/2023 4:30 PM EDT This is a summary report. The complete report is available in the patient's medical record. If you cannot access the medical record, please contact the sending organization for a detailed fax or copy. Full field digital screening tomosynthesis mammography, reviewed with CAD and compared to previous. The breasts are composed of fatty and fibroglandular tissue. There are stable postlumpectomy changes in the right upper outer breast. No suspicious mass, new areas of architectural distortion or suspicious calcifications are identified. IMPRESSION: : No mammographic evidence of malignancy. BI-RADS 2, benign findings. Breast density: The breasts have scattered areas of fibroglandular density. 5 year breast cancer risk assessment N/A Lifetime breast cancer risk assessment N/A Breast cancer risk category Low (<15%) Location: [facility], [address] [place] [address], [address], [phone] Procedure Note Sarah Varela MD - 11/22/2023 This is a summary report. The complete report is available in thepatient's medical record. If you cannot access the medical record, pleasecontact the sending organization for a detailed fax or copy. Full field digital screening tomosynthesis mammography, reviewed with CADand compared to previous. The breasts are composed of fatty andfibroglandular tissue. There are stable postlumpectomy changes in theright upper outer breast. No suspicious mass, new areas of architecturaldistortion or suspicious calcifications are identified. IMPRESSION: : No mammographic evidence of malignancy. BI-RADS 2, benign findings. Breast density: The breasts have scattered areas of fibroglandulardensity. 5 year breast cancer risk assessment N/A Lifetime breast cancer risk assessment N/A Breast cancer risk category Low (<15%) Location: [facility], [address] [place] [address], [id number], [phone] us Marily Noel MD IMG XR PROCEDURES Final Result * Diabetes Foot Exam (03/23/2023) Diabetes: Annual Foot Exam Abstracted Historical Provider HEALTH MAINTENANCE Final Result * Colonoscopy (02/27/2023) Pathologist Pending sale to [facility] Colonoscopy Normal, Abstracted Anatomical Region Laterality Modality Other Result [facility] Provider [place] HEALTH MAINTENANCE Final Result * DXA BONE DENSITY STUDY 1+ SITS AXIAL SKEL (01/07/2021 9:38 AM EST) Anatomical Region Laterality Modality Bone Densitometr y 10/20/2020 9:20 AM EDT Narrative 01/07/2021 5:45 PM EST BONE DENSITY Lumbar Spine T-score is +5.2 (SD relative to 20-29 y/o adult) Z-score is +6.4 (SD relative to age matched peers) This is normal by criteria defined by the WHO. Left Hip T-score is +0.4 Z-score is +0.9 This is normal by criteria defined by the WHO. Impression: Based on the World Health Organization criteria, Rosamaria Khan should be classified as having normal bone density. The [facility] Department of Internal Medicine recommends using National Osteoporosis Foundation (NOF) guidelines in treatment decisions related to osteoporosis. NOF guidelines suggest considering treatment for postmenopausal women and men aged 50 or older presenting with the following: History of hip or vertebral fracture. T-score less than or equal to -2.5 (DXA) at the femoral neck, total hip, or spine, after appropriate evaluation to exclude secondary causes. Low bone mass (T-score between -1.0 and -2.5 at the femoral neck or spine) AND a 10-year probability of a hip fracture greater than or equal to 3% OR a 10-year probability of a major osteoporosis-related fracture greater than or equal to 20% based on the [place]-adapted WHO algorithm Please note that all treatment decisions require clinical judgment and consideration of individual patient factors, including patient preferences, co-morbidities, previous drug use, risk factors not captured in the FRAX model (e.g., frailty, falls, vitamin D deficiency, increased bone turnover, interval significant decline in bone density) and possible under- or over-estimation of fracture risk by FRAX. Procedure Note Sarah Varela MD - 01/25/2022 BONE DENSITY Lumbar Spine T-score is +5.2 (SD relative to 20-29 y/o adult) Z-score is +6.4 (SD relative to age matched peers) This is normal by criteria defined by the WHO. Left Hip T-score is +0.4 Z-score is +0.9 This is normal by criteria defined by the WHO. Impression: Based on the World Health Organization criteria, Rosamaria Flahertyould be classified as having normal bone density. [facility] Department of Internal Medicine recommendsusing National Osteoporosis Foundation (NOF) guidelines in treatmentdecisions related to osteoporosis. NOF guidelines suggest consideringtreatment for postmenopausal women and men aged 50 or older presentingwith the following: History of hip or vertebral fracture. T-score less than or equal to -2.5 (DXA) at the femoral neck, total hip,or spine, after appropriate evaluation to exclude secondary causes. Low bone mass (T-score between -1.0 and -2.5 at the femoral neck or spine)AND a 10-year probability of a hip fracture greater than or equal to 3% ORa 10-year probability of a major osteoporosis-related fracture greaterthan or equal to 20% based on the [place]-adapted WHO algorithm Please note that all treatment decisions require clinical judgment andconsideration of individual patient factors, including patientpreferences, co-morbidities, previous drug use, risk factors not capturedin the FRAX model (e.g., frailty, falls, vitamin D deficiency, increasedbone turnover, interval significant decline in bone density) and possibleunder- or over-estimation of fracture risk by FRAX. 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 Health Care Decision (hx) 08/18/2008 AD KHAN DIRECTIVE Health Care Decision (hx) 08/18/2008 AD KHAN DIRECTIVE Health Care Decision (hx) 08/18/2008 AD KHAN DIRECTIVE Health Care Decision (hx) 08/18/2008 AD KHAN DIRECTIVE Health Care Decision (hx) 08/18/2008 AD KHAN DIRECTIVE Health Care Decision (hx) 08/18/2008 AD KHAN DIRECTIVE Health Care Decision (hx) 08/18/2008 AD KHAN DIRECTIVE Health Care Decision (hx) 08/18/2008 AD KHAN DIRECTIVE Health Care Decision (hx) 08/18/2008 AD KHAN DIRECTIVE Health Care Decision (hx) 08/18/2008 AD KHAN DIRECTIVE Health Care Decision (hx) 08/18/2008 AD KHAN DIRECTIVE Health Care Decision (hx) 08/18/2008 AD KHAN DIRECTIVE Health Care Decision (hx) 08/18/2008 AD KHAN DIRECTIVE Health Care Decision (hx) 08/18/2008 AD KHAN DIRECTIVE Health Care Decision (hx) 08/18/2008 AD KHAN DIRECTIVE Care Teams Jointer Machine Relationship Specialty Start Date End Date Marily Noel MD [address] [place] [address] PCP - General Internal Medicine 11/07/1991
--- OUTSIDE RECORDS SUMMARY | 2024-12-31 08:37 | XMS_ITS | Encounter Summary ---
Author Organization [facility] Address [address] [place] [address] Care Team Providers Care Belly Dump Driver Name Role Phone Marily Neol MD Primary Care Provider Encounter Details Date Type Department Care Team (Late st Contact Info) Description 12/23/2024 Results Follow-Up Adult Medicine [facility] [address] [place], [place] [phone] Marily Noel MD [address], [place] Social History Tobacco Use Types Packs/Day [...] Record ed Within the last 3 months, lorna cruz many times did you visit the emergency [...] care for your loved ones. For example, children's ministry director or elderly care for an older adult? [...] Upcoming Encounters Date Type Department Care Team ([facility] Contact Info) Description 01/11/2025 12:30 PM EST Appointment Radiology Department - [place] [address] [place] [address] 04/23/2025 9:30 AM EDT Office Visit Adult Medicine [address] [phone] [facility] [address], [place] documented as of this encounter Goals [...] documented as of this encounter Care Teams Belly Dump Driver Relationship Specialty Start Date End Date Marily Noel MD [address] [place] [address] PCP - General Internal Medicine 11/07/1991 documented as of this encounter
== END 2024-12-31 08:40 | disposition home or self-care (01) ==
LOC: HO.HPHYS 08:21
PROVIDERS: PCP Internal Medicine; Visit Provider Physical Medicine & Rehabilitation
DX: M48.062 Spinal stenosis, lumbar region with neurogenic claudication (principal); M19.011 Primary osteoarthritis, right shoulder; M19.012 Primary osteoarthritis, left shoulder; M54.16 Radiculopathy, lumbar region
CPT/HCPCS: 99214; G2211